=== PATIENT | male | born 1950 ===

== ENCOUNTER 2017-08-07 09:52 | Observation (INO) | payer OTHER ==
[2017-08-07 09:53] VITALS: BMI 28.7
[2017-08-07 10:21] LABS: BASO # 0.1 K/uL (0.0-0.2); EOS # 0.2 K/uL (0.0-0.7); EOS % 2.8 % (0.0-4.0); HEMOGLOBIN 15.1 g/dL (12.0-18.0); LYMPH # 1.8 K/uL (1.0-4.3); MEAN CELL VOLUME 86.4 fl (80.0-94.0); MEAN CORPUSCULAR HEMOGLOBIN 29.6 pg (27.0-31.0); MEAN CORPUSCULAR HGB CONC 34.3 g/dL (33.0-37.0); MEAN PLATELET VOLUME 8.4 fl (7.2-11.7); MONO # 0.9 K/uL (0.0-0.8); MONO % 10.2 % (0.0-10.0); NEUT # 5.7 K/uL (1.8-7.0); NRBC % 0.1 % (0.0-0.0); RBC 5.09 Mil/uL (4.40-5.90); RED CELL DISTRIBUTION WIDTH 14.3 % (11.5-14.5); WHITE BLOOD COUNT 8.7 K/uL (4.8-10.8)
--- NOTE | 2017-08-07 10:23 | CT ---
PROCEDURE: CT HEAD WITHOUT CONTRAST. HISTORY: code stroke COMPARISON: CT head dated 02/15/2010. TECHNIQUE: Axial computed tomography images were obtained through the head/brain without intravenous contrast. Radiation dose: Total exam DLP = 949.4 mGy-cm. This CT exam was performed using one or more of the following dose reduction techniques: Automated exposure control, adjustment of the mA and/or kV according to patient size, and/or use of iterative reconstruction technique. FINDINGS: HEMORRHAGE: No intracranial hemorrhage. BRAIN: No mass effect or edema. Atrophy. Chronic microvascular ischemic changes. 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 Stable appearance of punctate hypoattenuated foci in the bilateral high frontal lobes (series 4, image 53). Stable coarse calcification in the high left frontal lobe. VENTRICLES: Unremarkable. No hydrocephalus. CALVARIUM: Unremarkable. PARANASAL SINUSES: Unremarkable as visualized. No significant inflammatory changes. MASTOID AIR CELLS: Ground-glass attenuation in the inferior right mastoid air cells which may represent inspissated secretions. No inflammatory changes. OTHER FINDINGS: None. IMPRESSION: No acute intracranial pathology. Age-related findings. Findings conveyed to Dr. Souza by Dr. Razo at 10:15 a.m. on 08/07/2017.
[2017-08-07 10:33] LABS: ALB/GLOB RATIO 1.3 (1.0-2.1); ALBUMIN 4.5 g/dL (3.5-5.0); ALT/SGPT 41 U/L (21-72); AST/SGOT 46 U/L (17-59); BLOOD UREA NITROGEN 19 mg/dl (9-20); CALCIUM 9.5 mg/dL (8.4-10.2); GFR AFRICAN-AMERICAN > 60; GFR NON-AFRICAN AMERICAN > 60; HDL CHOLESTEROL 35 MG/DL (30-70)
[2017-08-07 10:36] LABS: PARTIAL THROMBOPLASTIN TIME 33.8 Seconds (25.6-37.1); PROTHROMBIN TIME 11.4 Seconds (9.8-13.1)
[2017-08-07 10:44] LABS: LDL CHOLESTEROL 106 mg/dL (0-129)
--- NOTE | 2017-08-07 10:52 | ED PDOC ---
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 Denies weakness or numbness to upper or lower extremities. Denies change vision, does not some mild difficulty w/ speech. NIHSS Stroke Scale - Date/Time Evaluation Performed Date Performed: 08/07/17 When Was NIHSS Performed: Baseline rTPA Inclusion/Exclusion - Refusal of Treatment Patient Refused Treatment: No - Inclusion Criteria for Altepase Patient is 18 years or Older: Yes The Clinical Diagnosis of Ischemic Stroke That is Causing a Potentially Disabling Neurological Deficit: Yes Time of Onset is Well Established to be Less Than 270 Minute Before Treatment Would Begin: No Risk/Benefit Discussed With Patient/Family Member Present: No - Warning to TPA With Conditions Following Conditions Weighed Against Anticipated Benefit: Yes Condition: Stroke Serevity Too Mild Past Medical History Reviewed: Historical Data, Nursing Documentation, Vital Signs Vital Signs: Last Vital Signs Temp 98 F 08/07/17 09:59 Pulse 97 H 08/07/17 10:30 Resp 18 08/07/17 10:30 BP 125/71 08/07/17 10:30 Pulse Ox 100 08/07/17 10:30 - Medical History PMH: Diabetes, HTN - Family History Family History: States: Unknown Family Hx - Living Arrangements Living Arrangements: With Family - Social History Current smoker - smoking cessation education provided: No - Immunization History Hx Tetanus Toxoid Vaccination: No Hx Influenza Vaccination: No Hx Pneumococcal Vaccination: No - Home Medications Home Medications: Ambulatory Orders Medication Instructions Recorded Lisinopril/Hydrochlorothiazide 1 tab PO DAILY 08/07/17 [Lisinopril-Hctz 10-12.5 mg Tab] metFORMIN [glucOPHAGE] 500 mg PO BID 08/07/17 - Allergies Allergies/Adverse Reactions: Allergies Allergy/AdvReac Type Severity Reaction Status Date / Time No Known Allergies Allergy Verified 11/26/16 12:58 Review of Systems Constitutional: Negative for: Fever Eyes: Negative for: Vision Change, Eyelid Inflammation ENT: Negative for: Throat Pain, Throat Swelling Cardiovascular: Negative for: Chest Pain, Palpitations Gastrointestinal: Negative for: Abdominal Pain Genitourinary Male: Negative for: Dysuria Musculoskeletal: Negative for: Neck Pain, Back Pain Neurological: Positive for: Weakness, Numbness, Headache. Negative for: Altered Mental Status Physical Exam - Reviewed Nursing Documentation Reviewed: Yes Vital Signs Reviewed: Yes - Physical Exam Appears: Positive for: Well, Non-toxic, No Acute Distress Head Exam: Positive for: ATRAUMATIC, NORMAL INSPECTION, NORMOCEPHALIC Skin: Positive for: Normal Color, Warm, DRY Eye Exam: Positive for: EOMI, Normal appearance, PERRL ENT: Positive for: Normal ENT Inspection Neck: Positive for: Normal, Painless ROM Cardiovascular/Chest: Positive for: Regular Rate, Rhythm Respiratory: Positive for: CNT, Normal Breath Sounds Gastrointestinal/Abdominal: Positive for: Normal Exam, Soft Back: Positive for: Normal Inspection Extremity: Positive for: Normal ROM Neurologic/Psych: Positive for: Alert, Other (L facial weakness forehead involvement) - Laboratory Results Result Diagrams: 08/07/17 10:15 08/07/17 10:15 - ECG O2 Sat by Pulse Oximetry: 100 Disposition - Disposition
[2017-08-07] MEDS ORDERED: Aspirin 325 mg EC Tablets PO ONE (11:30)
[2017-08-07] MEDS: Sodium Chloride 0.9% 1,000 ML IV SCH (11:35)
--- NOTE | 2017-08-07 11:53 | RAD ---
HISTORY: Code Stroke COMPARISON: 08/31/2016 FINDINGS: LUNGS: No active pulmonary disease. PLEURA: No significant pleural effusion identified, no pneumothorax apparent. CARDIOVASCULAR: No radiographic findings to suggest acute or significant cardiovascular disease. OSSEOUS STRUCTURES: No significant abnormalities. VISUALIZED UPPER ABDOMEN: Normal. OTHER FINDINGS: None. IMPRESSION: No active disease. No significant interval change compared to the prior examination(s).
--- NOTE | 2017-08-07 12:05 | CP.PCM.HP ---
History of Present Illness - History of Present Illness History of Present Illness: 67 yo male with history of DM2 and HTN came in because of left facial weakness and numbness since last night associated with occipital headache. Denied weakness or numbness of any limbs. Denied SOB, chest pain or fever/chills. Present on Admission - Present on Admission Any Indicators Present on Admission: No History of DVT/PE: No History of Uncontrolled Diabetes: No Urinary Catheter: No Decubitus Ulcer Present: No Review of Systems - Review of Systems Systems not reviewed;Unavailable: Acuity of Condition (from those mentioned above, 12 point system review were negative by me) All systems: reviewed and no additional remarkable complaints except (aside from those mentioned above, 12 point system review were negative by me) Past Patient History - Tetanus Immunizations Tetanus Immunization: Unknown - Past Medical History & Family History Past Medical History?: Yes - Past Social History Smoking Status: Never Smoked Alcohol: Occasional Drugs: Denies - CARDIAC Hx Cardiac Disorders: Yes Hx Hypertension: Yes - ENDOCRINE/METABOLIC Hx Endocrine Disorders: Yes Hx Diabetes Mellitus Type 2: Yes - PSYCHIATRIC Hx Substance Use: No Meds Allergies/Adverse Reactions: Allergies Allergy/AdvReac Type Severity Reaction Status Date / Time No Known Allergies Allergy Verified 11/26/16 12:58 Physical Exam - Constitutional Appears: No Acute Distress - Head Exam Head Exam: ATRAUMATIC - Eye Exam Eye Exam: absent: Scleral icterus Pupil Exam: PERRL - ENT Exam ENT Exam: Mucous Membranes Moist - Neck Exam Neck exam: Negative for: Meningismus - Respiratory Exam Respiratory Exam: absent: Rales, Rhonchi, Wheezes, Respiratory Distress - Cardiovascular Exam Cardiovascular Exam: REGULAR RHYTHM, +S1, +S2 - GI/Abdominal Exam GI & Abdominal Exam: Soft. absent: Tenderness - Rectal Exam Rectal Exam: Deferred - Extremities Exam Extremities exam: Negative for: calf tenderness, pedal edema - Back Exam Back exam: NORMAL INSPECTION - Neurological Exam Neurological exam: Motor Sensory Deficit (left facial weakness and numbness) - Psychiatric Exam Psychiatric exam: Normal Affect - Skin Skin Exam: Dry, Intact Results - Vital Signs Recent Vital Signs: Last Vital Signs Temp 98 F 08/07/17 09:59 Pulse 60 08/07/17 11:50 Resp 18 08/07/17 11:50 BP 119/82 08/07/17 11:50 Pulse Ox 98 08/07/17 11:30 - Labs Result Diagrams: 08/07/17 10:15 08/07/17 10:15 Labs: Laboratory Results - last 24 hr 08/07/17 08/07/17 08/07/17 09:58 10:15 10:15 WBC 8.7 RBC 5.09 Hgb 15.1 Hct 44.0 MCV 86.4 MCH 29.6 MCHC 34.3 RDW 14.3 Plt Count 278 MPV 8.4 Neut % (Auto) 65.0 Lymph % (Auto) 21.0 [place] % (Auto) 10.2 H Eos % (Auto) 2.8 Baso % (Auto) 1.0 Neut # (Auto) 5.7 Lymph # (Auto) 1.8 [place] # (Auto) 0.9 H Eos # (Auto) 0.2 Baso # (Auto) 0.1 PT INR APTT Sodium 140 Potassium 4.3 Chloride 103 Carbon Dioxide 22 Anion Gap 19 BUN 19 Creatinine 1.0 Est GFR ( Amer) > 60 Est GFR (Non-Af Amer) > 60 POC Glucose (mg/dL) 101 Random Glucose 116 H Calcium 9.5 Total Bilirubin 0.7 AST 46 ALT 41 Alkaline Phosphatase 74 Troponin I < 0.0120 Total Protein 8.0 Albumin 4.5 Globulin 3.4 Albumin/Globulin Ratio 1.3 Triglycerides 148 D Cholesterol 160 LDL Cholesterol Direct 106 HDL Cholesterol 35 Blood Type Blood Type Confirm Antibody Screen BBK History Checked 08/07/17 08/07/17 08/07/17 10:15 10:18 10:35 WBC RBC Hgb Hct MCV MCH MCHC RDW Plt Count MPV Neut % (Auto) Lymph % (Auto) [place] % (Auto) Eos % (Auto) Baso % (Auto) Neut # (Auto) Lymph # (Auto) [place] # (Auto) Eos # (Auto) Baso # (Auto) PT 11.4 INR 1.0 APTT 33.8 Sodium Potassium Chloride Carbon Dioxide Anion Gap BUN Creatinine Est GFR ( Amer) Est GFR (Non-Af Amer) POC Glucose (mg/dL) Random Glucose Calcium Total Bilirubin AST ALT Alkaline Phosphatase Troponin I Total Protein Albumin Globulin Albumin/Globulin Ratio Triglycerides Cholesterol LDL Cholesterol Direct HDL Cholesterol Blood Type O POSITIVE Blood Type Confirm O POSITIVE Antibody Screen Negative BBK History Checked No verified bt Assessment & Plan - Assessment and Plan (Free Text) Assessment: 67 yo male with history of DM2 and HTN came in because of left facial weakness and numbness since last night associated with occipital headache. Denied weakness or numbness of any limbs. Denied SOB, chest pain or fever/chills. 1. 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 DM2 BS controlled continue Metformin 3. HTN BP stable continue Lisinopril and HCTZ
--- NOTE | 2017-08-07 12:06 | CARD ---
APPROVED REPORT EKG Measurement Heart [id number] <Conclusion> Sinus rhythm with premature atrial complexes Inferior infarct, age undetermined Abnormal ECG
[2017-08-07] MEDS ORDERED: Patient's Own Med (Lisinopril/Hydrochlorothiazide [Lisinopril-Hctz 10-12.5 Mg Tab] 1 TAB) PO SCH (12:15)
[2017-08-07] MEDS ORDERED: Pneumococcal 23-Valent Vaccine IM ONE (14:00)
[2017-08-07] MEDS ORDERED: Dexamethasone 10 MG in Sodium Chloride 0.9% 50 ML IV ONE (15:01)
--- NOTE | 2017-08-07 15:01 | CP.PCM.CON ---
History of Present Illness - History of Present Illness History of Present Illness: Mr. Abad is a 67-year-old man with a past medical history of DM, HTN, HLD, who states that yesterday, he developed headache and left facial droop. He presented to the ED today with left facial droop, difficulty with left eye closure and difficulty with left side of the forehead wrinkling. MRI of the brain did not show any acute findings. Review of Systems - Review of Systems All systems: reviewed and no additional remarkable complaints except Past Patient History - Tetanus Immunizations Tetanus Immunization: Unknown - Past Medical History & Family History Past Medical History?: Yes - Past Social History Smoking Status: Never Smoked - CARDIAC Hx Cardiac Disorders: Yes Hx Hypertension: Yes - PULMONARY Hx Respiratory Disorders: No - NEUROLOGICAL Hx Neurological Disorder: No - HEENT Hx HEENT Problems: No - RENAL Hx Chronic Kidney Disease: No - ENDOCRINE/METABOLIC Hx Endocrine Disorders: Yes Hx Diabetes Mellitus Type 2: Yes - HEMATOLOGICAL/ONCOLOGICAL Hx Blood Disorders: No - INTEGUMENTARY Hx Dermatological Problems: No - MUSCULOSKELETAL/RHEUMATOLOGICAL Hx Musculoskeletal Disorders: No Hx Falls: No - GASTROINTESTINAL Hx Gastrointestinal Disorders: No - GENITOURINARY/GYNECOLOGICAL Hx Genitourinary Disorders: No - PSYCHIATRIC Hx Psychophysiologic Disorder: No Hx Substance Use: No - SURGICAL HISTORY Hx Surgeries: No - ANESTHESIA Hx Anesthesia: No Hx Anesthesia Reactions: No Hx Malignant Hyperthermia: No Has any member of the family had a problem w/ anesthesia?: No Meds Allergies/Adverse Reactions: Allergies Allergy/AdvReac Type Severity Reaction Status Date / Time No Known Allergies Allergy Verified 11/26/16 12:58 - Medications Medications: Current Medications Atorvastatin Calcium (Lipitor) 10 mg PO DAILY [facility] Docusate Sodium (Colace) 100 mg PO BID PRN PRN Reason: Constipation Hydrochlorothiazide (Microzide) 12.5 mg PO DAILY [facility] Sodium Chloride (Sodium Chloride 0.9%) 1,000 mls @ 100 mls/hr IV .Q10H [facility] Last Admin: 08/07/17 11:35 Dose: 100 mls/hr Lisinopril (Zestril) 10 mg PO DAILY [facility] Metformin HCl (Glucophage) 500 mg PO BID [facility] Pantoprazole Sodium (Protonix Ec Tab) 40 mg PO DAILY [facility] Physical Exam - Neurological Exam Neurological exam: Alert, Normal Gait, Oriented x3, Reflexes Normal Additional comments: left 7th nerve palsy. Otherwise CN 2-12 are intact. Results - Vital Signs Recent Vital Signs: Last Vital Signs Temp 98 F 08/07/17 09:59 Pulse 57 L 08/07/17 12:00 Resp 20 08/07/17 13:09 BP 118/68 08/07/17 12:00 Pulse Ox 98 08/07/17 12:00 - Labs Result Diagrams: 08/07/17 10:15 08/07/17 10:15 Labs: Laboratory Results - last 24 hr 08/07/17 08/07/17 08/07/17 09:58 10:15 10:15 WBC 8.7 RBC 5.09 Hgb 15.1 Hct 44.0 MCV 86.4 MCH 29.6 MCHC 34.3 RDW 14.3 Plt Count 278 MPV 8.4 Neut % (Auto) 65.0 Lymph % (Auto) 21.0 [place] % (Auto) 10.2 H Eos % (Auto) 2.8 Baso % (Auto) 1.0 Neut # (Auto) 5.7 Lymph # (Auto) 1.8 [place] # (Auto) 0.9 H Eos # (Auto) 0.2 Baso # (Auto) 0.1 PT INR APTT Sodium 140 Potassium 4.3 Chloride 103 Carbon Dioxide 22 Anion Gap 19 BUN 19 Creatinine 1.0 Est GFR ( Amer) > 60 Est GFR (Non-Af Amer) > 60 POC Glucose (mg/dL) 101 Random Glucose 116 H Calcium 9.5 Total Bilirubin 0.7 AST 46 ALT 41 Alkaline Phosphatase 74 Troponin I < 0.0120 Total Protein 8.0 Albumin 4.5 Globulin 3.4 Albumin/Globulin Ratio 1.3 Triglycerides 148 D Cholesterol 160 LDL Cholesterol Direct 106 HDL Cholesterol 35 Blood Type Blood Type Confirm Antibody Screen BBK History Checked 08/07/17 08/07/17 08/07/17 10:15 10:18 10:35 WBC RBC Hgb Hct MCV MCH MCHC RDW Plt Count MPV Neut % (Auto) Lymph % (Auto) [place] % (Auto) Eos % (Auto) Baso % (Auto) Neut # (Auto) Lymph # (Auto) [place] # (Auto) Eos # (Auto) Baso # (Auto) PT 11.4 INR 1.0 APTT 33.8 Sodium Potassium Chloride Carbon Dioxide Anion Gap BUN Creatinine Est GFR ( Amer) Est GFR (Non-Af Amer) POC Glucose (mg/dL) Random Glucose Calcium Total Bilirubin AST ALT Alkaline Phosphatase Troponin I Total Protein Albumin Globulin Albumin/Globulin Ratio Triglycerides Cholesterol LDL Cholesterol Direct HDL Cholesterol Blood Type O POSITIVE Blood Type Confirm O POSITIVE Antibody Screen Negative BBK History Checked No verified bt Assessment & Plan (1) Daley's palsy Assessment and Plan: Will give decadron 10 mg IV once, and then start the patient on a tapering dose of prednisone and a 10 day course of valcyclovir. He will need tight glucose control and possible medication adjustment from primary. He may also need GI prophylaxis with a PPI or H2RA. Follow up with primary care and neurology as outpatient. No further recommendations at this time. Thank you. Status: Acute Priority: High
--- NOTE | 2017-08-07 15:14 | MRI ---
PROCEDURE: MRI BRAIN WITHOUT CONTRAST HISTORY: Left Facial weakness COMPARISON: 02/16/2010 TECHNIQUE: Multiplanar, multisequence MR images of the brain were obtained without intravenous contrast enhancement. FINDINGS: HEMORRHAGE: None DWI: No evidence of an acute or early subacute infarction. BRAIN PARENCHYMA: No mass effect or edema. Mild atrophy. Mild microvascular changes. VENTRICLES: Unremarkable. No hydrocephalus. CRANIUM: Unremarkable. ORBITS: Grossly unremarkable. PARANASAL SINUSES/MASTOIDS: Clear VASCULAR SYSTEM: Skull base flow voids intact. OTHER FINDINGS: None. IMPRESSION: No acute intracranial findings
[2017-08-07 19:20] VITALS: RESP 18
[2017-08-08] MEDS: Sodium Chloride 0.9% 1,000 ML IV SCH (03:05)
[2017-08-08 06:47] LABS: BASO % 0.1 % (0.0-2.0); HEMOGLOBIN 14.3 g/dL (12.0-18.0); LYMPH # 0.9 K/uL (1.0-4.3); LYMPH % 6.6 % (20.0-40.0); MEAN CELL VOLUME 86.3 fl (80.0-94.0); MEAN CORPUSCULAR HGB CONC 34.7 g/dL (33.0-37.0); MEAN PLATELET VOLUME 8.7 fl (7.2-11.7); MONO # 0.2 K/uL (0.0-0.8); MONO % 1.7 % (0.0-10.0); NEUT # 12.4 K/uL (1.8-7.0); NEUT % 91.6 % (50.0-75.0); PLATELET COUNT 271 K/uL (130-400); RBC 4.79 Mil/uL (4.40-5.90); RED CELL DISTRIBUTION WIDTH 14.1 % (11.5-14.5); WHITE BLOOD COUNT 13.6 K/uL (4.8-10.8)
[2017-08-08 06:49] LABS: BLOOD UREA NITROGEN 21 mg/dl (9-20); CALCIUM 9.3 mg/dL (8.4-10.2); GFR AFRICAN-AMERICAN > 60; GFR NON-AFRICAN AMERICAN > 60; HDL CHOLESTEROL 34 MG/DL (30-70)
[2017-08-08 07:00] LABS: LDL CHOLESTEROL 115 mg/dL (0-129)
[2017-08-08 07:57] VITALS: BP 118/80; PULSE 75; TEMP 98.1; O2SAT 95
[2017-08-08] MEDS ORDERED: Pantoprazole 40 mg EC Tab PO SCH (09:00)
[2017-08-08 09:32] LABS: ANISOCYTOSIS SLIGHT; BANDS 1 % (0-2); LYMPHOCYTE 8 % (20-50); MONOCYTE 3 % (0-10); NEUTROPHIL 88 % (42-75); PLATELET ESTIMATE NORMAL (NORMAL); TOTAL CELLS COUNTED 100
--- NOTE | 2017-08-08 11:38 | CP.PCM.DIS ---
Provider - Provider Date of Admission: 08/07/17 10:53 Attending physician: Craig Schultz MD Consults: Dr Navarro Time Spent in preparation of Discharge (in minutes): 25 Diagnosis - Discharge Diagnosis (1) Daley's palsy Status: Acute Priority: High Comment: start Prednisone tomorrow and gradually taper for 10 days. Valacyclovir 1000mg PO TID for 5 days. follow up with PCP (2) DM2 (diabetes mellitus, type 2) Status: Acute Comment: BS slightly elevated because of steroid. continue Metformin 500mg PO BID (3) HTN (hypertension) Status: Acute Comment: BP stable. continue Lisinopril/HCTZ PO daily Hospital Course - Lab Results Lab Results: Most Recent Lab Values WBC 13.6 K/uL (4.8-10.8) H D 08/08/17 05:30 RBC 4.79 Mil/uL (4.40-5.90) 08/08/17 05:30 Hgb 14.3 g/dL (12.0-18.0) 08/08/17 05:30 Hct 41.3 % (35.0-51.0) 08/08/17 05:30 MCV 86.3 fl (80.0-94.0) 08/08/17 05:30 MCH 30.0 pg (27.0-31.0) 08/08/17 05:30 MCHC 34.7 g/dL (33.0-37.0) 08/08/17 05:30 RDW 14.1 % (11.5-14.5) 08/08/17 05:30 Plt Count 271 K/uL (130-400) 08/08/17 05:30 MPV 8.7 fl (7.2-11.7) 08/08/17 05:30 Neut % (Auto) 91.6 % (50.0-75.0) H 08/08/17 05:30 Lymph % (Auto) 6.6 % (20.0-40.0) L 08/08/17 05:30 [place] % (Auto) 1.7 % (0.0-10.0) 08/08/17 05:30 Eos % (Auto) 0.0 % (0.0-4.0) 08/08/17 05:30 Baso % (Auto) 0.1 % (0.0-2.0) 08/08/17 05:30 Neut # (Auto) 12.4 K/uL (1.8-7.0) H 08/08/17 05:30 Lymph # (Auto) 0.9 K/uL (1.0-4.3) L 08/08/17 05:30 [place] # (Auto) 0.2 K/uL (0.0-0.8) 08/08/17 05:30 Eos # (Auto) 0.0 K/uL (0.0-0.7) 08/08/17 05:30 Baso # (Auto) 0.0 K/uL (0.0-0.2) 08/08/17 05:30 Neutrophils % (Manual) 88 % (42-75) H 08/08/17 05:30 Band Neutrophils % 1 % (0-2) 08/08/17 05:30 Lymphocytes % (Manual) 8 % (20-50) L 08/08/17 05:30 Monocytes % (Manual) 3 % (0-10) 08/08/17 05:30 Platelet Estimate Normal (NORMAL) 08/08/17 05:30 Anisocytosis (manual) Slight 08/08/17 05:30 PT 11.4 Seconds (9.8-13.1) 08/07/17 10:15 INR 1.0 (0.9-1.2) 08/07/17 10:15 APTT 33.8 Seconds (25.6-37.1) 08/07/17 10:15 Sodium 139 mmol/l (132-148) 08/08/17 05:30 Potassium 4.2 MMOL/L (3.6-5.0) 08/08/17 05:30 Chloride 103 mmol/L (98-107) 08/08/17 05:30 Carbon Dioxide 21 mmol/L (22-30) L 08/08/17 05:30 Anion Gap 19 (10-20) 08/08/17 05:30 BUN 21 mg/dl (9-20) H 08/08/17 05:30 Creatinine 1.0 mg/dl (0.8-1.5) 08/08/17 05:30 Est GFR ( Amer) > 60 08/08/17 05:30 Est GFR (Non-Af Amer) > 60 08/08/17 05:30 POC Glucose (mg/dL) 154 mg/dL (65-110) H 08/08/17 05:25 Random Glucose 148 mg/dL (75-110) H 08/08/17 05:30 Hemoglobin A1c 6.1 % (4.2-6.5) 08/07/17 12:30 Calcium 9.3 mg/dL (8.4-10.2) 08/08/17 05:30 Total Bilirubin 0.7 mg/dl (0.2-1.3) 08/07/17 10:15 AST 46 U/L (17-59) 08/07/17 10:15 ALT 41 U/L (21-72) 08/07/17 10:15 Alkaline Phosphatase 74 U/L (38-126) 08/07/17 10:15 Troponin I < 0.0120 ng/mL (0.00-0.120) 08/07/17 10:15 Total Protein 8.0 G/DL (6.3-8.2) 08/07/17 10:15 Albumin 4.5 g/dL (3.5-5.0) 08/07/17 10:15 Globulin 3.4 gm/dL (2.2-3.9) 08/07/17 10:15 Albumin/Globulin Ratio 1.3 (1.0-2.1) 08/07/17 10:15 Triglycerides 82 mg/DL (0-149) D 08/08/17 05:30 Cholesterol 159 mg/dL (0-199) 08/08/17 05:30 LDL Cholesterol Direct 115 mg/dL (0-129) 08/08/17 05:30 HDL Cholesterol 34 MG/DL (30-70) 08/08/17 05:30 Blood Type O POSITIVE 08/07/17 10:18 Blood Type Confirm O POSITIVE 08/07/17 10:35 Antibody Screen Negative 08/07/17:18 BBK History Checked No verified bt 08/07/17 10:18 - Hospital Course Hospital Course: 67 yo male with history of DM2 and HTN came in because of left facial weakness and numbness associated with occipital headache. Denied weakness or numbness of extremities. CT scan and MRI of the head were negative for acute findings. Dr Navarro, neurology consult, agreed to discharge patient and sent home with Valacyclovir and tapering dose of Prednisone. Discharge Exam - Head Exam Head Exam: ATRAUMATIC - Eye Exam Eye Exam: PERRL. absent: Scleral icterus - ENT Exam ENT Exam: Mucous Membranes Moist - Respiratory Exam Respiratory Exam: absent: Rales, Rhonchi, Wheezes, Respiratory Distress - Cardiovascular Exam Cardiovascular Exam: REGULAR RHYTHM, +S1, +S2 - GI/Abdominal Exam GI & Abdominal Exam: Soft. absent: Tenderness - Rectal Exam Rectal Exam: Deferred - Neurological Exam Neurological exam: Alert, Oriented x3 - Psychiatric Exam Psychiatric exam: Normal Affect - Skin Skin Exam: Dry, Intact Discharge Plan - Discharge Medications Prescriptions: predniSONE [predniSONE Tab] 60 mg PO ASDIR #23 tab Valacyclovir HCl [Valacyclovir] 1,000 mg PO TID #15 tablet - Follow Up Plan Condition: GOOD Disposition: HOME/ ROUTINE Instructions: Daley's Palsy (DC)
== END 2017-08-08 11:00 | disposition home or self-care (01) ==
LOC: H.ER 09:52 → H.ERHOLD 10:53 → H.TEL 12:14
DX: G51.0 Bell's palsy (principal); E11.65 Type 2 diabetes mellitus with hyperglycemia; I10 Essential (primary) hypertension; E78.5 Hyperlipidemia, unspecified; Z23 Encounter for immunization; Z79.84 Long term (current) use of oral hypoglycemic drugs
CPT/HCPCS: 36415; 70450; 70551; 71045; 80048; 80053; 80061; 82948; 83036; 84484; 85025; 85610; 85730; 86850; 86900; 90471; 90732; 93005; 99285; G0378; J1100; J7040

== ENCOUNTER 2017-08-16 02:22 | Observation (INO) | payer SELFPAY ==
[2017-08-16 02:23] VITALS: BMI 28.7
[2017-08-16] MEDS ORDERED: Sodium Chloride 0.9% 1,000 ML IV STA ×2 (02:45→03:31)
[2017-08-16] MEDS ORDERED: Famotidine 20mg/50ml 20 MG/50 ML BAG IVPB ONE (02:55)
[2017-08-16 02:59] LABS: BASO # 0.1 K/uL (0.0-0.2); BASO % 0.3 % (0.0-2.0); HEMOGLOBIN 17.1 g/dL (12.0-18.0); LYMPH # 3.1 K/uL (1.0-4.3); LYMPH % 13.9 % (20.0-40.0); MEAN CELL VOLUME 86.1 fl (80.0-94.0); MEAN CORPUSCULAR HEMOGLOBIN 29.8 pg (27.0-31.0); MEAN CORPUSCULAR HGB CONC 34.6 g/dL (33.0-37.0); MEAN PLATELET VOLUME 8.5 fl (7.2-11.7); MONO # 1.1 K/uL (0.0-0.8); NEUT # 17.9 K/uL (1.8-7.0); NEUT % 80.8 % (50.0-75.0); NRBC % 0.1 % (0.0-0.0); RBC 5.73 Mil/uL (4.40-5.90); WHITE BLOOD COUNT 22.2 K/uL (4.8-10.8)
[2017-08-16 03:30] LABS: ALB/GLOB RATIO 1.6 (1.0-2.1); ALBUMIN 4.8 g/dL (3.5-5.0); ALT/SGPT 34 U/L (21-72); AST/SGOT 34 U/L (17-59); BLOOD UREA NITROGEN 35 mg/dl (9-20); CALCIUM 9.9 mg/dL (8.4-10.2); GFR AFRICAN-AMERICAN > 60; GFR NON-AFRICAN AMERICAN > 60; LIPASE 397 U/L (23-300)
[2017-08-16] MEDS ORDERED: Insulin Regular 100 units/ml IV ONE (03:30)
--- NOTE | 2017-08-16 04:08 | ED PDOC ---
HPI: Abdomen Time Seen by Provider: 08/16/17 02:38 Chief Complaint (Nursing): Abdominal Pain Chief Complaint (Provider): Abdominal Pain History Per: Patient History/Exam Limitations: no limitations Onset/Duration Of Symptoms: Hrs (x 2) Location Of Pain/Discomfort: Epigastric Associated Symptoms: Nausea, Vomiting Additional Complaint(s): 67 years old male with history of hypertension and diabetes presents to the ED with complaints of epigastric pain, nausea and vomiting. Patient denies any diarrhea, fever, shortness of breath, chest pain or cough. PMD: Melissa Lange Past Medical History Reviewed: Historical Data, Nursing Documentation, Vital Signs Vital Signs: Last Vital Signs Temp 97.6 F 08/16/17 23:30 Pulse 60 08/16/17 23:30 Resp 20 08/16/17 23:30 BP 126/65 08/16/17 23:30 Pulse Ox 96 08/17/17 04:01 - Medical History PMH: Diabetes, HTN Denies: Chronic Kidney Disease - Family History Family History: States: Unknown Family Hx - Social History Current smoker - smoking cessation education provided: No Alcohol: None Drugs: Denies - Immunization History Hx Tetanus Toxoid Vaccination: No Hx Influenza Vaccination: No Hx Pneumococcal Vaccination: No - Home Medications Home Medications: Ambulatory Orders Medication Instructions Recorded Lisinopril/Hydrochlorothiazide 1 tab PO DAILY 08/07/17 [Lisinopril-Hctz 10-12.5 mg Tab] metFORMIN [glucOPHAGE] 500 mg PO BID 08/07/17 predniSONE [predniSONE Tab] 60 mg PO ASDIR #23 tab 08/08/17 - Allergies Allergies/Adverse Reactions: Allergies Allergy/AdvReac Type Severity Reaction Status Date / Time No Known Allergies Allergy Verified 11/26/16 12:58 Review of Systems ROS Statement: Except As Marked, All Systems Reviewed And Found Negative Constitutional: Negative for: Fever Cardiovascular: Negative for: Chest Pain Respiratory: Negative for: Cough, Shortness of Breath Gastrointestinal: Positive for: Nausea, Vomiting, Abdominal Pain (epigastric). Negative for: Diarrhea Physical Exam - Reviewed Nursing Documentation Reviewed: Yes Vital Signs Reviewed: Yes - Physical Exam Appears: Positive for: No Acute Distress, Uncomfortable Head Exam: Positive for: ATRAUMATIC, NORMOCEPHALIC Skin: Positive for: Normal Color, Warm, Dry Eye Exam: Positive for: Normal appearance, EOMI, PERRL ENT: Positive for: Normal ENT Inspection Neck: Positive for: Normal, Painless ROM, Supple Cardiovascular/Chest: Positive for: Regular Rate, Rhythm. Negative for: Murmur Respiratory: Positive for: Normal Breath Sounds. Negative for: Respiratory Distress Gastrointestinal/Abdominal: Positive for: Tenderness (Epigastric) Back: Positive for: Normal Inspection Extremity: Positive for: Normal ROM. Negative for: Pedal Edema Neurologic/Psych: Positive for: Alert, Oriented, Facial Droop (Left) - Laboratory Results Result Diagrams: 08/16/17 02:55 08/16/17 16:00 - ECG O2 Sat by Pulse Oximetry: 96 (RA) Pulse Ox Interpretation: Normal - Critical Care Total Time (In Min): 30 Medical Decision Making Medical Decision Making: Time: 243 Initial Impression: 67 years old male with acute nausea and vomiting. Initial Plan: --CMP --Lipase --CBC --Famotidine 20 mg IV --HumanLIN R 10 units IV --NaCl 1,000 ml IV --Reglan 10 mg IVPB --Urinalysis Time: 423 Labs reviewed and show leukocytosis and hyperglycemia. 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 CT abdomen/pelvis are ordered. Patient will be admitted as discussed with Dr. Jason ( [facility]) for steroid induced, leukocytosis/gastritis and dehydration Scribe Attestation: Documented by Rosibel Jordan, acting as a scribe for Rudi Forbes MD. Provider Scribe Attestation: All medical record entries made by the Scribe were at my direction and personally dictated by me. I have reviewed the chart and agree that the record accurately reflects my personal performance of the history, physical exam, medical decision making, and the department course for this patient. I have also personally directed, reviewed, and agree with the discharge instructions and disposition. Disposition - Clinical Impression Clinical Impression: Leukocytosis, Dehydration, Vomiting, Hyperglycemia - Patient ED Disposition Is Patient to be Admitted: Yes - Disposition Disposition Time: 04:00 Condition: FAIR - Pt Status Changed To: Hospital Disposition Of: Observation
[2017-08-16] MEDS ORDERED: Insulin Regular 100 units/ml ONE (04:14)
[2017-08-16] MEDS ORDERED: Iohexol 300 100 ML IJ ONE (04:28)
[2017-08-16] MEDS ORDERED: Sodium Chloride 0.9% 50 ML IV ONE (04:29)
--- NOTE | 2017-08-16 05:00 | CP.PCM.HP ---
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 Vomiting started at 2 am. Patient denies any alcohol or illicit drug use, he ate pasta at home. He however had been put on new medication on discharge after being diagnosed with bells palsy. He has been taking 60mg of prednisone from August 09- August 14. Yesterday he took 40 mg of prednisone. He also finished his course of antiviral as were prescribed to him. However his symptoms have not improved and continues to have obvious facial deformity from the bells palsy. He is still unable to close left eye, elevate the left brow, show left teeth, pucker the left side of lips. In the hospital on admission he had MRI and CT w/o contrast done which did not show any acute changes. He was also see by neurology. He followed up with [facility] after for his ER follow up, however has not followed up with his neurology appointment yet, it is scheduled for August 24, 2017. Denies any chest pain, palpitations, SOB, blurring of vision. PMH: HTN, DM2, Nichols palsy, HLD PSH: None FH: None SH: Social drinker: Last drink one month ago, no tobacco or illicit drug use FULL CODE Present on Admission - Present on Admission Any Indicators Present on Admission: No Past Patient History - Tetanus Immunizations Tetanus Immunization: Unknown - Past Medical History & Family History Past Medical History?: Yes - Past Social History Alcohol: None Drugs: Denies - CARDIAC Hx Hypertension: Yes - PULMONARY Hx Respiratory Disorders: No - NEUROLOGICAL Hx Neurological Disorder: No Other/Comment: Lt Nichols Palsy - HEENT Hx HEENT Problems: No - RENAL Hx Chronic Kidney Disease: No - ENDOCRINE/METABOLIC Hx Endocrine Disorders: Yes Hx Diabetes Mellitus Type 2: Yes - HEMATOLOGICAL/ONCOLOGICAL Hx Blood Disorders: No - INTEGUMENTARY Hx Dermatological Problems: No - MUSCULOSKELETAL/RHEUMATOLOGICAL Hx Musculoskeletal Disorders: No Hx Falls: No - GASTROINTESTINAL Hx Gastrointestinal Disorders: No - GENITOURINARY/GYNECOLOGICAL Hx Genitourinary Disorders: No - PSYCHIATRIC Hx Psychophysiologic Disorder: No Hx Substance Use: No - SURGICAL HISTORY Hx Surgeries: No - ANESTHESIA Hx Anesthesia: No Hx Anesthesia Reactions: No Hx Malignant Hyperthermia: No Meds Allergies/Adverse Reactions: Allergies Allergy/AdvReac Type Severity Reaction Status Date / Time No Known Allergies Allergy Verified 11/26/16 12:58 Physical Exam - Constitutional Appears: No Acute Distress - Head Exam Head Exam: NORMAL INSPECTION - Eye Exam Additional comments: Left eye unable to close - Respiratory Exam Respiratory Exam: Clear to Auscultation Bilateral, NORMAL BREATHING PATTERN. absent: Wheezes - Cardiovascular Exam Cardiovascular Exam: REGULAR RHYTHM, +S1, +S2 - GI/Abdominal Exam GI & Abdominal Exam: Normal Bowel Sounds, Soft, Tenderness (slight epigastric tenderness) - Neurological Exam Neurological exam: Alert, Oriented x3 Additional comments: DTR 2+ b/l, Motor and strength intact upper and lower extremities Left sided facial weakness involving the forehead and inferior left facial weakness involving forehead, and inferior left facial muscles. Unable to close left eye, elevate the left eye brow Results - Vital Signs Recent Vital Signs: Last Vital Signs Temp 97.5 F L 08/16/17 02:41 Pulse 83 08/16/17 02:41 Resp 18 08/16/17 02:41 BP 189/95 H 08/16/17 02:41 Pulse Ox 96 08/16/17 04:40 - Labs Result Diagrams: 08/16/17 02:55 08/16/17 02:55 Labs: Laboratory Results - last 24 hr 08/16/17 08/16/17 02:55 02:55 WBC 22.2 H D RBC 5.73 Hgb 17.1 D Hct 49.3 MCV 86.1 MCH 29.8 MCHC 34.6 RDW 14.0 Plt Count 383 D MPV 8.5 Neut % (Auto) 80.8 H Lymph % (Auto) 13.9 L Bryan % (Auto) 5.0 Eos % (Auto) 0.0 Baso % (Auto) 0.3 Neut # (Auto) 17.9 H Lymph # (Auto) 3.1 Bryan # (Auto) 1.1 H Eos # (Auto) 0.0 Baso # (Auto) 0.1 Sodium 130 L Potassium 4.5 Chloride 90 L Carbon Dioxide 21 L Anion Gap 24 H BUN 35 H Creatinine 1.1 Est GFR ( Amer) > 60 Est GFR (Non-Af Amer) > 60 Random Glucose 409 H* D Calcium 9.9 Total Bilirubin 0.6 AST 34 ALT 34 Alkaline Phosphatase 192 H D Total Protein 7.9 Albumin 4.8 Globulin 3.1 Albumin/Globulin Ratio 1.6 Lipase 397 H Assessment & Plan - Assessment and Plan (Free Text) Assessment: 67 YO M w/ PMH of DM2, HLD, Nichols palsy is being admitted with hyperglycemia, abdominal pain and non bloody non billious vomiting. 1) Abdominal Pain (improved) - Most Likely due to vomiting secondary to hyperglycemia from prednisone - Pain currently resolved - CT abdomen: Cholelithiasis - Lipase 397, Alk Phos: 192 - F/U w/ abdominal U/S 2) Hyperglycemia in DM2 patient superimposed with steroid usage - In ER patient Blood sugar 409 .No ketone in urine. Was given 2 L IVF and 10 units of insulin: Repeat Accucheck 250 - F/U with CMP: Monitor K+ - C/W home meds and sliding scale - C/W third bag of IVF bolus followed with maintainace fluid 3) Leucocytosis - WBC: 22, Neutrophil %: 80 -Most likely secondary to steroid use vs Stress demargination 4) Nichols Palsy - Hold steroids for now - Encourage face exercise - artificial eye drops 5) HTN - C/W home meds 5) DVT prophylaxis SCD
[2017-08-16] MEDS ORDERED: Dextrose 50% SYRINGE Inj (50 ml) IV PRN ×2 (05:21→05:22)
[2017-08-16] MEDS ORDERED: Glucagon Recombinant 1 mg Inj IM PRN ×2 (05:21→05:22)
[2017-08-16 05:35] LABS: URINE BILIRUBIN NEGATIVE (NEGATIVE); URINE BLOOD NEGATIVE (NEGATIVE); URINE CLARITY CLEAR (Clear); URINE COLOR YELLOW (YELLOW); URINE GLUCOSE (UA) >=500 mg/dL (Normal); URINE LEUKOCYTE ESTERASE NEG Leu/uL (Negative); URINE PROTEIN NEGATIVE (NEGATIVE); URINE UROBILINOGEN 0.2-1.0 mg/dL (0.2-1.0)
--- NOTE | 2017-08-16 05:49 | CT ---
EXAM: CT Abdomen and Pelvis With Intravenous Contrast CLINICAL HISTORY: 67 years old, male; Pain; Abdominal pain; Generalized; Patient HX: See phys doc; Additional info: Abd pain TECHNIQUE: Axial computed tomography images of the abdomen and pelvis with intravenous contrast. All CT scans at this facility use one or more dose reduction techniques, viz.: automated exposure control; ma/kV adjustment per patient size (including targeted exams where dose is matched to indication; i.e. head); or iterative reconstruction technique. Coronal and sagittal reformatted images were created and reviewed. CONTRAST: 95 mL of OMNI 300 administered intravenously. COMPARISON: No relevant prior studies available. FINDINGS: Lung bases: Unremarkable. No mass. No consolidation. Heart: Trace pericardial effusion. ABDOMEN: Liver: Unremarkable. No mass. Gallbladder and bile ducts: Multiple calcified gallstones are present. No ductal dilation. Pancreas: Unremarkable. No mass. No ductal dilation. Spleen: Unremarkable. No splenomegaly. Adrenals: Unremarkable. No mass. Kidneys and ureters: Lobulated renal contour bilaterally. No hydronephrosis. Stomach and bowel: There is a diverticulum present in the second portion of the duodenum. No obstruction. No mucosal thickening.There is no wall thickening or pericolonic stranding to suggest colitis. PELVIS: Appendix: A normal appendix is identified. Bladder: Unremarkable. No mass. Reproductive: The prostate gland demonstrates mild hypertrophy. ABDOMEN and PELVIS: Intraperitoneal space: Unremarkable. No free air. No significant fluid collection. Bones/joints: No acute fracture. No dislocation. Soft tissues: Unremarkable. Vasculature: The aorta demonstrates mild atherosclerotic calcification. No abdominal aortic aneurysm. Lymph nodes: Unremarkable. No enlarged lymph nodes. IMPRESSION: No evidence of an acute intra-abdominal or pelvic abnormality. Cholelithiasis. Duodenal diverticulum. Prostate hypertrophy. Trace pericardial effusion.
[2017-08-16] MEDS: Sodium Chloride 0.9% 1,000 ML IV SCH ×10 (06:03→23:45)
[2017-08-16] MEDS ORDERED: Artificial Tears Opht Soln OU PRN (06:35)
[2017-08-16] MEDS ORDERED: Insulin Regular 100 units/ml SC SCH (07:30)
[2017-08-16 11:12] LABS: HDL CHOLESTEROL 45 MG/DL (30-70)
[2017-08-16 11:23] LABS: LDL CHOLESTEROL 43 mg/dL (0-129)
[2017-08-16] MEDS: Insulin Regular 100 units/ml SC SCH ×3 (12:59→22:51)
--- NOTE | 2017-08-16 15:32 | US ---
HISTORY: r/o cholecystitis COMPARISON: None. TECHNIQUE: Sonographic evaluation of the right upper quadrant of the abdomen. FINDINGS: LIVER: Measures 16.5 cm in length. Normal echogenicity of the liver parenchyma. No mass. No intrahepatic bile duct dilatation. GALLBLADDER: Cholelithiasis. No mural thickening or pericholecystic fluid. Negative sonographic Grace sign. COMMON BILE DUCT: Measures 3 mm. No stones. No dilatation. PANCREAS: Unremarkable as visualized. No mass. No ductal dilatation. RIGHT KIDNEY: Measures 10.8 cm in length. Normal echogenicity. No calculus, mass, or hydronephrosis. AORTA: No aneurysmal dilatation. IVC: Unremarkable. OTHER FINDINGS: None . IMPRESSION: Limited study due to patient body habitus. Cholelithiasis without sonographic evidence of cholecystitis.
[2017-08-16 16:54] LABS: BLOOD UREA NITROGEN 24 mg/dl (9-20); CALCIUM 8.6 mg/dL (8.4-10.2); GFR AFRICAN-AMERICAN > 60; GFR NON-AFRICAN AMERICAN > 60
[2017-08-17] MEDS: Sodium Chloride 0.9% 1,000 ML IV SCH ×3 (01:18→07:08)
--- NOTE | 2017-08-17 06:25 | CP.PCM.PN ---
Subjective - Date & Time of Evaluation Date of Evaluation: 08/17/17 Time of Evaluation: 06:25 Objective - Vital Signs/Intake and Output Vital Signs (last 24 hours): Temp Pulse Resp BP Pulse Ox 97.6 F 60 20 126/65 96 08/16/17 23:30 08/16/17 23:30 08/16/17 23:30 08/16/17 23:30 08/17/17 04:02 - Medications Medications: Current Medications Artificial Tears (Artificial Tears) 2 drop OU Q4 PRN PRN Reason: Dry eyes Dextrose (Dextrose 50% Inj) 0 ml IV STAT PRN; Protocol PRN Reason: Hypoglycemia Protocol Dextrose (Glutose 15) 0 gm PO ONCE PRN; Protocol PRN Reason: Hypoglycemia Protocol Dextrose (Dextrose 50% Inj) 0 ml IV STAT PRN; Protocol PRN Reason: Hypoglycemia Protocol Dextrose (Glutose 15) 0 gm PO ONCE PRN; Protocol PRN Reason: Hypoglycemia Protocol Glucagon (Glucagen Diagnostic Kit) 0 mg IM STAT PRN; Protocol PRN Reason: Hypoglycemia Protocol Glucagon (Glucagen Diagnostic Kit) 0 mg IM STAT PRN; Protocol PRN Reason: Hypoglycemia Protocol Hydrochlorothiazide (Microzide) 12.5 mg PO DAILY [facility] Last Admin: 08/16/17 09:44 Dose: 12.5 mg Sodium Chloride (Sodium Chloride 0.9%) 1,000 mls @ 200 mls/hr IV .Q5H [facility] Stop: 08/17/17 08:36 Last Admin: 08/17/17 01:18 Dose: 200 mls/hr Insulin Human Regular (Humulin R) 0 units SC ACHS JAK PRN Reason: Protocol Last Admin: 08/16/17 22:51 Dose: Not Given Lisinopril (Zestril) 10 mg PO DAILY [facility] Last Admin: 08/16/17 09:44 Dose: 10 mg Metformin HCl (Glucophage) 500 mg PO BID JAK - Labs Labs: 08/16/17 02:55 08/16/17 16:00
[2017-08-17 07:37] LABS: MEAN CELL VOLUME 85.9 fl (80.0-94.0); MEAN CORPUSCULAR HGB CONC 34.9 g/dL (33.0-37.0); RBC 4.67 Mil/uL (4.40-5.90); WHITE BLOOD COUNT 11.9 K/uL (4.8-10.8)
[2017-08-17 07:44] VITALS: BP 136/82; PULSE 56; RESP 19; TEMP 97.3; O2SAT 98
[2017-08-17 07:46] LABS: ALB/GLOB RATIO 1.3 (1.0-2.1); ALBUMIN 3.3 g/dL (3.5-5.0); ALT/SGPT 33 U/L (21-72); AST/SGOT 29 U/L (17-59); BLOOD UREA NITROGEN 19 mg/dl (9-20); CALCIUM 8.4 mg/dL (8.4-10.2); GFR AFRICAN-AMERICAN > 60; GFR NON-AFRICAN AMERICAN > 60; LIPASE 347 U/L (23-300)
[2017-08-17] MEDS: Insulin Regular 100 units/ml SC SCH ×2 (07:47→12:19)
--- NOTE | 2017-08-17 12:04 | CP.PCM.DIS ---
Provider - Provider Date of Admission: 08/16/17 04:18 Attending physician: Randa Alonso MD Time Spent in preparation of Discharge (in minutes): 25 Diagnosis - Discharge Diagnosis (1) Hyperglycemia Status: Acute (2) Daley's palsy Status: Acute Priority: High Hospital Course - Lab Results Lab Results: Most Recent Lab Values WBC 11.9 K/uL (4.8-10.8) H 08/17/17 06:00 RBC 4.67 Mil/uL (4.40-5.90) 08/17/17 06:00 Hgb 14.0 g/dL (12.0-18.0) D 08/17/17 06:00 Hct 40.1 % (35.0-51.0) 08/17/17 06:00 MCV 85.9 fl (80.0-94.0) 08/17/17 06:00 MCH 30.0 pg (27.0-31.0) 08/17/17 06:00 MCHC 34.9 g/dL (33.0-37.0) 08/17/17 06:00 RDW 14.0 % (11.5-14.5) 08/17/17 06:00 Plt Count 273 K/uL (130-400) D 08/17/17 06:00 MPV 8.5 fl (7.2-11.7) 08/16/17 02:55 Neut % (Auto) 80.8 % (50.0-75.0) H 08/16/17 02:55 Lymph % (Auto) 13.9 % (20.0-40.0) L 08/16/17 02:55 Traverse % (Auto) 5.0 % (0.0-10.0) 08/16/17 02:55 Eos % (Auto) 0.0 % (0.0-4.0) 08/16/17 02:55 Baso % (Auto) 0.3 % (0.0-2.0) 08/16/17 02:55 Neut # (Auto) 17.9 K/uL (1.8-7.0) H 08/16/17 02:55 Lymph # (Auto) 3.1 K/uL (1.0-4.3) 08/16/17 02:55 Traverse # (Auto) 1.1 K/uL (0.0-0.8) H 08/16/17 02:55 Eos # (Auto) 0.0 K/uL (0.0-0.7) 08/16/17 02:55 Baso # (Auto) 0.1 K/uL (0.0-0.2) 08/16/17 02:55 Sodium 134 mmol/l (132-148) 08/17/17 06:00 Potassium 3.9 MMOL/L (3.6-5.0) 08/17/17 06:00 Chloride 99 mmol/L (98-107) 08/17/17 06:00 Carbon Dioxide 27 mmol/L (22-30) 08/17/17 06:00 Anion Gap 12 (10-20) 08/17/17 06:00 BUN 19 mg/dl (9-20) 08/17/17 06:00 Creatinine 0.9 mg/dl (0.8-1.5) 08/17/17 06:00 Est GFR ( Amer) > 60 08/17/17 06:00 Est GFR (Non-Af Amer) > 60 08/17/17 06:00 POC Glucose (mg/dL) 157 mg/dL (65-110) H 08/17/17 05:07 Random Glucose 153 mg/dL (75-110) H 08/17/17 06:00 Calcium 8.4 mg/dL (8.4-10.2) 08/17/17 06:00 Total Bilirubin 0.7 mg/dl (0.2-1.3) 08/17/17 06:00 AST 29 U/L (17-59) 08/17/17 06:00 ALT 33 U/L (21-72) 08/17/17 06:00 Alkaline Phosphatase 66 U/L (38-126) 08/17/17 06:00 Total Protein 5.8 G/DL (6.3-8.2) L 08/17/17 06:00 Albumin 3.3 g/dL (3.5-5.0) L D 08/17/17 06:00 Globulin 2.5 gm/dL (2.2-3.9) 08/17/17 06:00 Albumin/Globulin Ratio 1.3 (1.0-2.1) 08/17/17 06:00 Triglycerides 114 mg/DL (0-149) D 08/16/17 10:55 Cholesterol 106 mg/dL (0-199) 08/16/17 10:55 LDL Cholesterol Direct 43 mg/dL (0-129) 08/16/17 10:55 HDL Cholesterol 45 MG/DL (30-70) 08/16/17 10:55 Lipase 347 U/L (23-300) H 08/17/17 06:00 Urine Color Yellow (YELLOW) 08/16/17 05:33 Urine Clarity Clear (Clear) 08/16/17 05:33 Urine pH 5.0 (5.0-8.0) 08/16/17 05:33 Ur Specific [place] 1.051 (1.003-1.030) H 08/16/17 05:33 Urine Protein Negative mg/dL (NEGATIVE) 08/16/17 05:33 Urine Glucose (UA) >=500 mg/dL (Normal) 08/16/17 05:33 Urine Ketones Negative mg/dL (NEGATIVE) 08/16/17 05:33 Urine Blood Negative (NEGATIVE) 08/16/17 05:33 Urine Nitrate Negative (NEGATIVE) 08/16/17 05:33 Urine Bilirubin Negative (NEGATIVE) 08/16/17 05:33 Urine Urobilinogen 0.2-1.0 mg/dL (0.2-1.0) 08/16/17 05:33 Ur Leukocyte Esterase Neg Skyler/uL (Negative) 08/16/17 05:33 Urine RBC (Auto) 1 /hpf (0-3) 08/16/17 05:33 Urine Microscopic WBC 1 /hpf (0-5) 08/16/17 05:33 - Hospital Course Hospital Course: 67 yo M w PMHx of DM2, HLD, [place] palsy is being admitted for hyperglycemia, abdominal pain and non bloody non billious vomiting. Abd U/S: Cholelithiasis w/ o sonographic evidence of cholecystitis. CT abdomen: Cholelithiasis. 4L of IV fluids given and 10u Insulin plus coverage given. Pain resolved and patient tolerated PO. Discharge Exam - Additional Findings Additional findings: - Constitutional Appears: No Acute Distress - Head Exam Head Exam: NORMAL INSPECTION - Eye Exam Additional comments: Left eye unable to close - Respiratory Exam Respiratory Exam: Clear to Auscultation Bilateral, NORMAL BREATHING PATTERN. absent: Wheezes - Cardiovascular Exam Cardiovascular Exam: REGULAR RHYTHM, +S1, +S2 - GI/Abdominal Exam GI & Abdominal Exam: Normal Bowel Sounds, Soft, Tenderness (slight epigastric tenderness) - Extremities Exam Extremities Exam: Normal Inspection. absent: Pedal Edema - Neurological Exam Neurological exam: Alert, Oriented x3 Additional comments: Equal and bilateral strength 5/5 Upper/Lower extremities Left sided facial weakness involving the forehead and inferior left facial weakness involving forehead, and inferior left facial muscles. Cannot completely close left eye, elevate the left eye brow Discharge Plan - Discharge Medications Prescriptions: predniSONE [Prednisone] 10 mg PO ONCE #1 tab - Follow Up Plan Condition: STABLE Disposition: HOME/ ROUTINE Additional Instructions: Instructed to maintain diet at home, including drinking plenty of clear fluids, 2-3L per day. Eat low fat diet over next several days. Follow up with PMD within 5 days. Take Prednisone 10mg One tab tomorrow (August 18) If abdominal pain returns, please return to ER.
== END 2017-08-17 15:16 | disposition home or self-care (01) ==
LOC: H.ER 02:22 → H.ERHOLD 04:18 → H.MEDSURG1 05:46
PROVIDERS: ADMIT Family Medicine Geriatric Medicine; ATTEND Family Medicine Geriatric Medicine
DX: E11.65 Type 2 diabetes mellitus with hyperglycemia (principal); G51.0 Bell's palsy; D72.829 Elevated white blood cell count, unspecified; E86.0 Dehydration; I10 Essential (primary) hypertension; E78.5 Hyperlipidemia, unspecified; T38.0X5A Adverse effect of glucocorticoids and synthetic analogues, initial encounter
CPT/HCPCS: 36415; 74177; 76705; 80053; 80061; 81003; 82948; 83690; 85025; 85027; 86618; 86703; 96361; 96365; 96375; 99284; G0378; J2765; J7040; Q9967

== ENCOUNTER 2017-10-03 12:26 | Emergency (ER) | payer SELFPAY ==
[2017-10-03 12:27] VITALS: BMI 28.7
[2017-10-03] MEDS ORDERED: Sodium Chloride 0.9% 1,000 ML IV STA (13:28)
[2017-10-03 14:00] LABS: ALB/GLOB RATIO 1.5 (1.0-2.1); ALBUMIN 4.5 g/dL (3.5-5.0); ALT/SGPT 30 U/L (21-72); AST/SGOT 37 U/L (17-59); BLOOD UREA NITROGEN 12 mg/dl (9-20); CALCIUM 9.3 mg/dL (8.4-10.2); GFR AFRICAN-AMERICAN > 60; GFR NON-AFRICAN AMERICAN > 60
[2017-10-03 14:01] LABS: BASO # 0.1 K/uL (0.0-0.2); BASO % 1.1 % (0.0-2.0); EOS # 0.2 K/uL (0.0-0.7); EOS % 2.8 % (0.0-4.0); HEMOGLOBIN 14.1 g/dL (12.0-18.0); LYMPH # 1.8 K/uL (1.0-4.3); LYMPH % 25.1 % (20.0-40.0); MEAN CELL VOLUME 86.4 fl (80.0-94.0); MEAN CORPUSCULAR HEMOGLOBIN 29.5 pg (27.0-31.0); MEAN CORPUSCULAR HGB CONC 34.2 g/dL (33.0-37.0); MEAN PLATELET VOLUME 8.3 fl (7.2-11.7); MONO # 0.7 K/uL (0.0-0.8); NEUT # 4.4 K/uL (1.8-7.0); RBC 4.78 Mil/uL (4.40-5.90); WHITE BLOOD COUNT 7.2 K/uL (4.8-10.8)
--- NOTE | 2017-10-03 14:23 | CT ---
PROCEDURE: CT HEAD WITHOUT CONTRAST. HISTORY: L facial weakness, neck pain COMPARISON: MR brain dated 08/07/2017. TECHNIQUE: Axial computed tomography images were obtained through the head/brain without intravenous contrast. Radiation dose: Total exam DLP = 983.3 mGy-cm. This CT exam was performed using one or more of the following dose reduction techniques: Automated exposure control, adjustment of the mA and/or kV according to patient size, and/or use of iterative reconstruction technique. FINDINGS: HEMORRHAGE: No intracranial hemorrhage. BRAIN: No mass effect or edema. Atrophy. Chronic microvascular ischemic changes. 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 Stable appearance of punctate hypoattenuated foci in the bilateral high frontal lobes. Stable coarse calcification in the high left frontal lobe VENTRICLES: Unremarkable. No hydrocephalus. CALVARIUM: Unremarkable. PARANASAL SINUSES: Unremarkable as visualized. No significant inflammatory changes. MASTOID AIR CELLS: Stable appearance of ground-glass attenuation in the inferior right mastoid air cells which may represent inspissated secretions. OTHER FINDINGS: None. IMPRESSION: No acute intracranial pathology. Age-related changes.
--- NOTE | 2017-10-03 14:26 | CT ---
PROCEDURE: CT Cervical Spine without contrast HISTORY: L facial weakness, neck pain COMPARISON: None available. TECHNIQUE: Axial computed tomography images were obtained of the cervical spine without the use of intravenous contrast. Coronal and sagittal reformatted images were created and reviewed. Radiation dose: Total exam DLP = 650.4 mGy-cm. This CT exam was performed using one or more of the following dose reduction techniques: Automated exposure control, adjustment of the mA and/or kV according to patient size, and/or use of iterative reconstruction technique. FINDINGS: VERTEBRAE: No fracture. Normal alignment. No destructive bony lesion. DISCS/SPINAL CANAL/NEURAL FORAMINA: No significant central canal or neural foraminal stenosis. Discs heights are mildly narrowed. PARASPINAL SOFT TISSUES: Unremarkable. OTHER FINDINGS: None. IMPRESSION: No acute fracture. Mild multilevel degenerative changes.
[2017-10-03 15:54] VITALS: PULSE 78; RESP 19; O2SAT 98
--- NOTE | 2017-10-03 16:40 | ED PDOC ---
HPI: Headache Time Seen by Provider: 10/03/17 13:04 Chief Complaint (Nursing): Headache History Per: [employer]ist (Anson BelkisDon Moreira) Past Medical History Vital Signs: Last Vital Signs Temp 98.1 F 10/03/17 12:39 Pulse 78 10/03/17 15:53 Resp 19 10/03/17 15:53 BP 145/77 10/03/17 15:53 Pulse Ox 98 10/03/17 15:53 - Medical History PMH: Diabetes, HTN Denies: Chronic Kidney Disease - Family History Family History: States: Unknown Family Hx - Immunization History Hx Tetanus Toxoid Vaccination: No Hx Influenza Vaccination: No Hx Pneumococcal Vaccination: No - Home Medications Home Medications: Ambulatory Orders Medication Instructions Recorded Lisinopril/Hydrochlorothiazide 1 tab PO DAILY 08/07/17 [Lisinopril-Hctz 10-12.5 mg Tab] metFORMIN [glucOPHAGE] 500 mg PO BID 08/07/17 predniSONE [Prednisone] 10 mg PO ONCE #1 tab 08/17/17 Gabapentin 300 mg PO TID #60 capsule 10/03/17 - Allergies Allergies/Adverse Reactions: Allergies Allergy/AdvReac Type Severity Reaction Status Date / Time No Known Allergies Allergy Verified 10/03/17 12:39 - Laboratory Results Result Diagrams: 10/03/17 13:44 10/03/17 13:44 - ECG O2 Sat by Pulse Oximetry: 98 Disposition - Clinical Impression Clinical Impression: Neuropathic pain, Neck pain, DM2 (diabetes mellitus, type 2) - Disposition Referrals: [facility] [Outside] Len Navarro MD [Medical Doctor] - Condition: STABLE Additional Instructions: Followup with neurology as directed. Return to ER for any new or worsening symptoms. Prescriptions: Gabapentin 300 mg PO TID #60 capsule Instructions: Neuropathic Pain, Daley's Palsy (DC), Chronic Neck Pain (DC) Forms: [employer] (Albanian) Print Language: SLOVENIAN
[2017-10-03 18:29] VITALS: BP 127/78; TEMP 97
--- NOTE | 2017-10-06 10:51 | CARD ---
APPROVED REPORT EKG Measurement Heart [id number] <Conclusion> Normal sinus rhythm Possible Inferior infarct, age undetermined Cannot rule out Anterior infarct, age undetermined Abnormal ECG
== END 2017-10-03 18:30 | disposition home or self-care (01) ==
LOC: H.ER 12:26
DX: M54.2 Cervicalgia (principal); M79.2 Neuralgia and neuritis, unspecified; E11.9 Type 2 diabetes mellitus without complications; I10 Essential (primary) hypertension; Z79.84 Long term (current) use of oral hypoglycemic drugs; R29.810 Facial weakness
CPT/HCPCS: 70450; 72125; 80053; 84443; 84484; 85025; 99285; J1885; J7030